=== PATIENT | male | born 1985 | race Caucasian/White ===

== ENCOUNTER 2016-12-01 21:13 | Emergency (ER) | payer OTHER ==
[2016-12-01 21:35] VITALS: PULSE 88; RESP 20
--- NOTE | 2016-12-01 23:11 | ED ---
General Adult HPI - General Chief complaint: Chest Pain Stated complaint: body aches and pains Time Seen by Provider: 12/01/16 21:57 Source: patient, RN notes reviewed Mode of arrival: ambulatory Limitations: no limitations - History of Present Illness Initial comments: Chief complaint history of present illness a 31-year-old male here for complaint of reproducible left anterior chest wall pain ongoing for approximately 10 days. Patient reports when he sneezes he has pain. When he splints the area he does not have pain. He does not specifically remember any particular injury other than sneezing. - Related Data Previous Rx's Medication Instructions Recorded Ibuprofen [Motrin] 600 mg PO Q6HR PRN #20 tab 12/01/16 Allergies Allergy/AdvReac Type Severity Reaction Status Date / Time No Known Allergies Allergy Verified 12/01/16 21:35 Review of Systems ROS Statement: Those systems with pertinent positive or pertinent negative responses have been documented in the HPI. Review of systems. No headache or visual acuity changes no shortness of breath. He reports most of his pain is gone now but he still has occasional pain with sneezing only. No rashes in the area. Splinting decrease his pain. No GI/ or neuro deficits. All systems were reviewed. Past medical problems significant for daily use of a strong marijuana. Past history includes methamphetamine, opiates heroin abuse. Also history of schizophrenia. She denies any surgeries. Family history noncontributory. Patient smokes heavily strongly encouraged to stop. ROS Other: All systems not noted in ROS Statement are negative. Past Medical History Past Medical History: No Reported History Additional Past Medical History / Comment(s): acute renal failure. History of Any Multi-Drug Resistant Organisms: None Reported Past Surgical History: No Surgical Hx Reported Past Psychological History: No Psychological Hx Reported Smoking Status: Current every day smoker Past Alcohol Use History: None Reported, Occasional Past Drug Use History: Methamphetamine, Opiates General Exam - General Exam Comments Initial Comments: General: The patient is awake and alert, complains of pleuritic or more likely costochondritic pain left anterior mid chest wall. Reproducible by sneezing. He can be controlled by splinting the area. Vital signs shows temperature 97.8 pulse 88 respiratory rate 20 pulse ox on percent room air blood pressure 124/ 84. Eye: Pupils are equal, round and reactive to light, extra-ocular movements are intact ; there is normal conjunctiva bilaterally. No signs of icterus. Ears, nose, mouth and throat: There are moist mucous membranes and no oral lesions. Neck: The neck is supple, there is no tenderness or JVD. Cardiovascular: There is a regular rate and rhythm. No murmur, rub or gallop is appreciated. Respiratory: Lungs are clear to auscultation, respirations are non-labored, breath sounds are equal. No wheezes, stridor, rales, or rhonchi. Gastrointestinal: Abdomen, nontender, no nausea no vomiting There is no tenderness to palpation in the midline. There is no obvious deformity. No rashes noted. Musculoskeletal: Normal range of motion of her lower extremities. Neurological: No neuro deficits. Limitations: no limitations Course Vital Signs 12/01/16 12/01/16 21:30 21:37 Temperature 97.8 F Pulse Rate 88 Respiratory 20 Rate Blood Pressure 124/84 Medical Decision Making - Medical Decision Making S x-ray is done AP lateral views. Reviewed by me. No evidence of any pneumothorax, no evidence of any bony pathology. Heart looks of normal size. No pleural effusion. Awaiting radiologist's final impression. The patient be placed on ibuprofen 6R milligrams every 6 hours. Told to splint the area when taking deep breath. Obviously told to stop any and all drugs and smoking. Disposition Clinical Impression: Costochondritis, acute Disposition: HOME SELF-CARE Condition: Stable Instructions: Costochondritis (ED) Additional Instructions: Use ibuprofen 600 mg every 6 hours for pain control and splint the area with her hand as needed. Stop smoking. Follow-up with family physician return emergency room as needed Prescriptions: Ibuprofen [Motrin] 600 mg PO Q6HR PRN #20 tab PRN Reason: Pain Time of Disposition: 23:31
--- NOTE | 2016-12-01 23:44 | XR ---
EXAM: XR Chest, 2 Views. CLINICAL HISTORY: Reason: Left-sided chest pain increases with coughing TECHNIQUE: Frontal and lateral views of the chest. COMPARISON: No relevant prior studies available. FINDINGS: Lungs: Unremarkable. No consolidation. Pleural space: Unremarkable. No pneumothorax. Heart: Unremarkable. No cardiomegaly. Mediastinum: Unremarkable. Bones/joints: Unremarkable. IMPRESSION: No acute process seen within the chest.
[2016-12-01 23:46] VITALS: BP 124/68; TEMP 98
== END 2016-12-01 23:46 | disposition home or self-care (01) ==
LOC: EC 21:13
DX: M94.0 Chondrocostal junction syndrome [Tietze] (principal); R06.7 Sneezing; F17.200 Nicotine dependence, unspecified, uncomplicated
CPT/HCPCS: 71020; 99284